=== PATIENT | male | born 1985 | race Caucasian/White ===

== ENCOUNTER 2018-06-20 18:25 | Emergency (ER) | payer MEDICARE ==
[~2018-06-20] VITALS: Ht 182.9 cm; Wt 71.8 kg
[2018-06-20 18:35] VITALS: BP 120/85
[2018-06-20] MEDS ORDERED: TETanus/Pertussis (Acell)/Diphther VAC/PF (Tdap-Adult) 0.5ml syringe IM ONE (18:55)
[2018-06-21 09:10] LABS: HIV ANTIBODY 1&2 RAPID NON-REACTIVE (Neg)
[2018-06-22 05:24] LABS: HEP B CORE AB, IGM Negative (Negative); HEP B CORE AB, TOT Negative (Negative); HEPATITIS C ANTIBODY <0.1 s/co ratio (0.0-0.9)
== END 2018-06-20 19:20 | disposition home or self-care (01) ==
LOC: ER 18:26
DX: S81.852A Open bite, left lower leg, initial encounter (principal); S81.851A Open bite, right lower leg, initial encounter; F17.200 Nicotine dependence, unspecified, uncomplicated; Z77.21 Contact with and (suspected) exposure to potentially hazardous body fluids; W54.0XXA Bitten by dog, initial encounter; Y93.89 Activity, other specified; Y92.89 Other specified places as the place of occurrence of the external cause; Y99.9 Unspecified external cause status
CPT/HCPCS: 36415; 86703; 86704; 86705; 86706; 86803; 90471; 90715; 99284